=== PATIENT | female | born 1970 | race Caucasian/White ===

== ENCOUNTER 2017-12-22 01:15 | Emergency (ER) | payer MEDICAID ==
[~2017-12-22] VITALS: Ht 162.6 cm; Wt 52.2 kg
[~2017-12-22 01:15] MED LIST: ACET-3627 PO
[2017-12-22 01:19] VITALS: BP 110/75
--- NOTE | 2017-12-22 01:19 | NUR ---
TO BED # 2 AMBULATORY, REPORT GIVEN TO FRANKO LILLY
--- NOTE | 2017-12-22 01:20 | NUR ---
47 Y/O F PRESENTS TO THE ED W/C/O TEARY EYES X 10DAYS. PT DENIES N/V/D; SKIN IS INTACT, PINK/WARM/DRY; AAOX4, PERRL, WITH EVEN AND STEADY GAIT; LUNGS CLEAR BL, BREATHING UNLABORED; HR EVEN AND REGULAR, BL PERIPHERAL PULSES PRESENT; BS ACTIVE X4, NO TENDERNESS TO PALPATION, NO HEPATOSPLENOMEGALLY PALPATED, RESONANT TO PERCUSSION; PT DENIES ANY FEVER, CP, SOB, OR COUGH AT THIS TIME; PT STATES 5/10 PAIN AT THIS TIME IN BILAT EYES; VSS; PATIENT POSITIONED FOR COMFORT; HOB ELEVATED; BEDRAILS UP X2; BED DOWN.
--- NOTE | 2017-12-22 01:24 | NUR ---
VISION ACUITY BOTH EYE 20/20, LEFT EYE 20/20, RT EYE 20/20
[2017-12-22 01:40] VITALS: BP 112/75
--- NOTE | 2017-12-22 01:40 | NUR ---
PT REFUSED TO SIGN DISCHARGE PAPERWORK AND LEFT.
== END 2017-12-22 01:48 | disposition home or self-care (01) ==
LOC: MED 01:15
DX: H04.551 Acquired stenosis of right nasolacrimal duct (principal)
CPT/HCPCS: 99282

== ENCOUNTER 2018-07-13 20:11 | Emergency (ER) | payer MEDICAID, OTHER ==
[~2018-07-13] VITALS: Ht 162.6 cm; Wt 50.8 kg
[2018-07-13 20:29] VITALS: BP 122/84
[2018-07-13 20:33] VITALS: BP 122/84
--- NOTE | 2018-07-13 20:33 | NUR ---
TO LOBBY A/W BED, LISSETTE MUNGUIA NOTED
--- NOTE | 2018-07-13 20:38 | NUR ---
PATIENT LEFT WITHOUT BEING SEEN BY DR. ARRIAGA. NO FURTHER CARE PROVIDED FOR PATIENT.
== END 2018-07-13 20:38 | disposition left against medical advice (07) ==
LOC: MED 20:11
DX: R06.00 Dyspnea, unspecified (principal); Z53.21 Procedure and treatment not carried out due to patient leaving prior to being seen by health care provider

== ENCOUNTER 2019-01-18 17:08 | Emergency (ER) | payer OTHER ==
[~2019-01-18] VITALS: Ht 162.6 cm; Wt 51.3 kg
[2019-01-18 17:15] VITALS: BP 94/65
[2019-01-18] MEDS ORDERED: cefTRIAXone 500 MG in LIDOCAINE MPF 1% 1 ML IM ONE (17:45)
[2019-01-18 18:23] VITALS: BP 94/65
== END 2019-01-18 17:26 | disposition home or self-care (01) ==
LOC: MED 17:08
DX: N39.0 Urinary tract infection, site not specified (principal); Z79.899 Other long term (current) drug therapy; Z98.890 Other specified postprocedural states
CPT/HCPCS: 81002; 96372; 99283; J0696; J2001

== ENCOUNTER 2019-01-30 14:17 | Emergency (ER) | payer OTHER ==
[~2019-01-30] VITALS: Ht 162.6 cm; Wt 52.2 kg
[2019-01-30 14:22] VITALS: BP 114/58
--- NOTE | 2019-01-30 14:22 | NUR ---
C/O LOWER ABDOMEN SHARP PAIN RADIATING LOWER BACK---X LAST NIGHT DENIES HEMATURIA--ADMITS TO HAVE COMPLETED KEFLEX COURSE 2 DAYS AGO
--- NOTE | 2019-01-30 14:28 | NUR ---
PT AMBULATED TO BED 11
--- NOTE | 2019-01-30 14:30 | NUR ---
48/F PRESENTS TO ED, C/O LOWER ABD/SUPRAPUBIC PAIN RADIATING TO LOWER BACK, DYSURIA, URINARY FREQUENCY AND URGENCY, X2 DAYS. PT WAS DX UTI 10 DAYS AGO, FINISHED RX KEFLEX 2 DAYS AGO WITH RELIEF BUT UTI SYMPTOMS CAME BACK. PT AWAKE AND ALERT, SKIN NORMAL COLOR WARM AND DRY, RR EVEN AND UNLABORED. HX ANXIETY RX XANAX, KEFLEX (WAS FINISHED 2 DAYS AGO)
[2019-01-30 14:46] LABS: APPEARANCE,URINE CLOUDY (CLEAR); BILIRUBIN,URINE NEGATIVE (NEGATIVE); BLOOD, URINE NEGATIVE (NEGATIVE); COLOR,URINE ORANGE (YELLOW); LEUKOCYTE ESTERASE ,URINE TRACE (NEGATIVE); NITRITE, URINE POSITIVE (NEGATIVE); PH,URINE 5.5 (5.0-9.0); UGLUCOSE 1+ (NEGATIVE)
[2019-01-30 14:55] LABS: RBC,URINE 0-5 /HPF (0-5)
[2019-01-30 15:28] VITALS: BP 114/58
--- NOTE | 2019-01-30 15:30 | NUR ---
ENCOURAGED PATIENT TO DRINK PLENTLY OF FLUIDS, URINATE AFTER INTERCOURSE, WASH HANDS BEFORE AND AFTER USING THE RESTROOM.
== END 2019-01-30 15:28 | disposition home or self-care (01) ==
LOC: MED 14:17
DX: N39.0 Urinary tract infection, site not specified (principal); Z98.890 Other specified postprocedural states; Z79.891 Long term (current) use of opiate analgesic
CPT/HCPCS: 81001; 81025; 87086; 99283

== ENCOUNTER 2020-12-27 15:06 | Emergency (ER) | payer OTHER ==
[~2020-12-27 15:06] MED LIST changes: +ACET-8386 PO
--- NOTE | 2020-12-27 15:40 | NUR ---
CALLED PATIENT IN LOBBY AND OUTSIDE. NO RESPONSE.
--- NOTE | 2020-12-27 15:50 | NUR ---
CALLED PATIENT IN LOBBY AND OUTSIDE. NO RESPONSE.
--- NOTE | 2020-12-27 15:55 | NUR ---
CALLED PATIENT IN LOBBY AND OUTSIDE. NO RESPONSE. LEFT WITHOUT BEING SEEN
== END 2020-12-27 15:40 | disposition left against medical advice (07) ==
LOC: MED 15:06
DX: R07.9 Chest pain, unspecified (principal); Z53.21 Procedure and treatment not carried out due to patient leaving prior to being seen by health care provider

== ENCOUNTER 2022-05-22 17:10 | Emergency (ER) | payer OTHER ==
[~2022-05-22] VITALS: Ht 162.6 cm; Wt 53.6 kg
[~2022-05-22 17:10] MED LIST changes: -ACET-8386 PO; +ACET-8905 PO
[2022-05-22 17:24] VITALS: BP 109/69
--- NOTE | 2022-05-22 17:47 | NUR ---
MD ESCALANTE AT BEDSIDE FOR EVALUATION
[2022-05-22] MEDS ORDERED: DEXAMETHASONE 10 MG/ML VIAL IM ONE (17:50)
[2022-05-22] MEDS ORDERED: KETOROLAC 30 MG/ML VIAL IM ONE (17:50)
--- NOTE | 2022-05-22 17:51 | NUR ---
52YO FEMALE PT C/O HEAD, NECK AND SHOULDER PAIN [id number]. REPORTS ONGOING S/S FOR ABOUT 1 YEAR AND STATES PENDING PCP APPT ON 05/30/22. +NUMBING IN FINGERS. STATES TAKING XANAX TO " HELP SLEEP THROUGH PAIN "PRESENTS W/O VISIBLE INJURY, LIMITED ROM IN NECK DUE TO PAIN. DENIES N/V/D, CHEST PAIN OR SOB. PT AAOX4, RESPIRATIONS EVEN AND UNLABORED. HOB RAISED PER COMFORT HX: ANXIETY NKA
[2022-05-22] MEDS ORDERED: LIDOCAINE 5% 1 EA PATCH TP SCH (18:00)
--- NOTE | 2022-05-22 18:24 | NUR ---
Patient discharged with v/s stable. Written and verbal after care instructions FOR NECK EXERCISES given and explained. Patient verbalized understanding. Ambulatory with steady gait. All questions addressed prior to discharge. Advised to follow up with PMD.
--- NOTE | 2022-05-22 18:25 | NUR ---
The patient's care was reviewed and supervised by Gayla Barajas RN.
[2022-05-23] MEDS ORDERED: LIDOCAINE 5% 1 EA PATCH TP SCH (09:00)
== END 2022-05-22 18:24 | disposition home or self-care (01) ==
LOC: MED 17:10
DX: M54.2 Cervicalgia (principal)
CPT/HCPCS: 81025; 96372; 99284; J1100; J1885